=== PATIENT | female | born 1935 | race Caucasian/White ===

== ENCOUNTER 2018-05-02 21:30 | Emergency (ER) | payer OTHER ==
[~2018-05-02] VITALS: Ht 147.3 cm; Wt 76.2 kg
[2018-05-02 21:33] VITALS: Ht 147.3 cm; Wt 76.2 kg
[2018-05-02 22:43] VITALS: BP 162/92
== END 2018-05-02 22:43 | disposition home or self-care (01) ==
LOC: ED 21:30
DX: S52.602A Unspecified fracture of lower end of left ulna, initial encounter for closed fracture (principal); I10 Essential (primary) hypertension; W10.9XXA Fall (on) (from) unspecified stairs and steps, initial encounter; Y93.89 Activity, other specified; Y92.89 Other specified places as the place of occurrence of the external cause; Y99.8 Other external cause status